=== PATIENT | female | born 1975 | race Caucasian/White ===

== ENCOUNTER → 2016-03-24 | Outpatient (CLI) | payer OTHER ==
[~2016-03-24] MED LIST: BCP TD; CLONAZEPAM1 M1 PO; DOXYCYCLINE 10100 MG PO; FAMILY PHARMAC0.4 MG PO; FLEXERIL10 MG PO; ISONIAZID; ISONIAZID PO; LEVORA-28 30 MC1 TA1 PO; MOTRIN 800800 MG/TAB PO; PERCOCET 325 MG1 TA2 PO; PRILOSEC 20MG20 MG PO; RANITIDINE75 MG PO; SAM-E200 MG PO; VITAMIN B 12 PO; VITAMIN B 6 PO; VITAMIN B-12100 MCG PO; VITAMIN B-625 MG PO; WELLBUTRIN SR150 MG PO
== END ==
LOC: BHSO 15:54
DX: F33.2 Major depressive disorder, recurrent severe without psychotic features (principal)

== ENCOUNTER → 2016-06-07 | Outpatient (CLI) | payer OTHER | LOC: BHSO 09:05 | DX: F33.41 Major depressive disorder, recurrent, in partial remission (principal) ==

== ENCOUNTER → 2016-06-08 | Outpatient (CLI) | payer OTHER | LOC: BHSO 12:57 | DX: F41.1 Generalized anxiety disorder (principal) ==

== ENCOUNTER → 2016-07-14 | Outpatient (CLI) | payer OTHER | LOC: BHSO 16:04 | DX: F41.1 Generalized anxiety disorder (principal) ==

== ENCOUNTER → 2016-08-11 | Outpatient (CLI) | payer OTHER | LOC: BHSO 15:53 | DX: F41.1 Generalized anxiety disorder (principal) ==

== ENCOUNTER → 2016-09-08 | Outpatient (CLI) | payer OTHER | LOC: BHSO 15:56 | DX: F41.1 Generalized anxiety disorder (principal) ==

== ENCOUNTER → 2016-12-28 | Outpatient (CLI) | payer BC | LOC: BHSO 13:45 | DX: F41.1 Generalized anxiety disorder (principal) ==

== ENCOUNTER → 2017-03-30 | Outpatient (CLI) | payer BC | LOC: BHSO 15:55 | DX: F41.1 Generalized anxiety disorder (principal) | CPT/HCPCS: G0463 ==

== ENCOUNTER → 2017-04-05 | Outpatient (CLI) | payer BC | LOC: MC.RAD 13:40 | DX: Z12.31 Encounter for screening mammogram for malignant neoplasm of breast (principal) ==

== ENCOUNTER → 2017-05-10 | Outpatient (CLI) | payer BC | LOC: BHSO 14:49 | DX: F33.1 Major depressive disorder, recurrent, moderate (principal) ==

== ENCOUNTER → 2017-05-26 | Outpatient (CLI) | payer BC | LOC: BHSO 16:01 | DX: F33.1 Major depressive disorder, recurrent, moderate (principal) | CPT/HCPCS: G0463 ==

== ENCOUNTER → 2017-06-07 | Outpatient (CLI) | payer BC | LOC: BHSO 14:58 | DX: F33.1 Major depressive disorder, recurrent, moderate (principal) ==

== ENCOUNTER → 2017-07-07 | Outpatient (CLI) | payer BC | LOC: BHSO 15:54 | DX: F33.1 Major depressive disorder, recurrent, moderate (principal) ==

== ENCOUNTER → 2017-07-13 | Outpatient (CLI) | payer BC | LOC: BHSO 15:34 | DX: F33.41 Major depressive disorder, recurrent, in partial remission (principal) | CPT/HCPCS: G0463 ==

== ENCOUNTER → 2017-09-22 | Outpatient (CLI) | payer BC | LOC: BHSO 09:02 | DX: F33.1 Major depressive disorder, recurrent, moderate (principal) ==

== ENCOUNTER → 2017-10-11 | Outpatient (CLI) | payer BC | LOC: BHSO 13:15 | DX: F33.42 Major depressive disorder, recurrent, in full remission (principal) ==

== ENCOUNTER → 2017-11-13 | Outpatient (CLI) | payer BC | LOC: BHSO 15:57 | DX: F33.1 Major depressive disorder, recurrent, moderate (principal) ==

== ENCOUNTER → 2017-12-14 | Outpatient (CLI) | payer BC | LOC: BHSO 16:00 | DX: F33.1 Major depressive disorder, recurrent, moderate (principal) ==

== ENCOUNTER → 2018-01-10 | Outpatient (CLI) | payer BC | LOC: BHSO 15:55 | DX: F33.1 Major depressive disorder, recurrent, moderate (principal) ==

== ENCOUNTER → 2018-01-11 | Outpatient (CLI) | payer BC | LOC: BHSO 15:41 | DX: F33.42 Major depressive disorder, recurrent, in full remission (principal) | CPT/HCPCS: G0463 ==

== ENCOUNTER → 2018-02-02 | Outpatient (CLI) | payer BC | LOC: BHSO 16:00 | DX: F41.1 Generalized anxiety disorder (principal) ==

== ENCOUNTER → 2018-03-09 | Outpatient (CLI) | payer BC | LOC: BHSO 15:53 | DX: F33.1 Major depressive disorder, recurrent, moderate (principal) ==

== ENCOUNTER → 2018-04-06 | Outpatient (CLI) | payer BC | LOC: BHSO 15:54 | DX: F33.1 Major depressive disorder, recurrent, moderate (principal) ==

== ENCOUNTER → 2018-04-11 | Outpatient (CLI) | payer BC | LOC: MC.RAD 15:06 | DX: Z12.31 Encounter for screening mammogram for malignant neoplasm of breast (principal) ==

== ENCOUNTER → 2018-05-10 | Outpatient (CLI) | payer BC | LOC: BHSO 15:51 | DX: F33.1 Major depressive disorder, recurrent, moderate (principal) ==

== ENCOUNTER → 2018-06-26 | Outpatient (CLI) | payer BC | LOC: BHSO 16:02 | DX: F41.1 Generalized anxiety disorder (principal) ==

== ENCOUNTER → 2018-07-10 | Outpatient (CLI) | payer BC | LOC: BHSO 16:16 | DX: F33.42 Major depressive disorder, recurrent, in full remission (principal) | CPT/HCPCS: G0463 ==

== ENCOUNTER → 2018-08-16 | Outpatient (CLI) | payer BC | LOC: BHSO 13:55 | DX: F41.1 Generalized anxiety disorder (principal) ==

== ENCOUNTER → 2018-09-13 | Outpatient (CLI) | payer BC | LOC: BHSO 13:57 | DX: F41.1 Generalized anxiety disorder (principal) ==

== ENCOUNTER → 2018-10-10 | Outpatient (CLI) | payer BC | LOC: BHSO 10:59 | DX: F33.1 Major depressive disorder, recurrent, moderate (principal) | CPT/HCPCS: G0463 ==

== ENCOUNTER → 2018-12-05 | Outpatient (CLI) | payer BC | LOC: BHSO 15:50 | DX: F33.1 Major depressive disorder, recurrent, moderate (principal) ==

== ENCOUNTER → 2019-01-08 | Outpatient (CLI) | payer BC | LOC: BHSO 16:08 | DX: F41.1 Generalized anxiety disorder (principal) | CPT/HCPCS: G0463 ==

== ENCOUNTER → 2019-01-09 | Outpatient (CLI) | payer BC | LOC: BHSO 15:57 | DX: F33.1 Major depressive disorder, recurrent, moderate (principal) ==

== ENCOUNTER → 2019-04-10 | Outpatient (CLI) | payer BC | LOC: BHSO 16:01 | DX: F41.1 Generalized anxiety disorder (principal) ==

== ENCOUNTER → 2019-05-15 | Outpatient (CLI) | payer BC | LOC: MC.RAD 13:23 | DX: Z12.31 Encounter for screening mammogram for malignant neoplasm of breast (principal) ==

== ENCOUNTER → 2019-05-17 | Outpatient (CLI) | payer BC | LOC: BHSO 15:54 | DX: F33.0 Major depressive disorder, recurrent, mild (principal) ==

== ENCOUNTER → 2019-08-07 | Outpatient (CLI) | payer BC | LOC: BHSO 16:02 | DX: F33.1 Major depressive disorder, recurrent, moderate (principal) ==

== ENCOUNTER → 2019-08-19 | Outpatient (CLI) | payer BC | LOC: BHSO 14:59 | DX: F41.1 Generalized anxiety disorder (principal) ==

== ENCOUNTER → 2019-09-03 | Outpatient (CLI) | payer BC | LOC: BHSO 15:03 | DX: F41.1 Generalized anxiety disorder (principal) ==

== ENCOUNTER → 2019-09-24 | Outpatient (CLI) | payer BC | LOC: BHSO 16:05 | DX: F41.1 Generalized anxiety disorder (principal) ==

== ENCOUNTER → 2019-10-08 | Outpatient (CLI) | payer BC | LOC: BHSO 15:59 | DX: F33.0 Major depressive disorder, recurrent, mild (principal) ==

== ENCOUNTER → 2019-10-21 | Outpatient (CLI) | payer BC | LOC: BHSO 16:02 | DX: F41.1 Generalized anxiety disorder (principal) ==

== ENCOUNTER → 2019-11-05 | Outpatient (CLI) | payer BC | LOC: BHSO 16:01 | DX: F41.1 Generalized anxiety disorder (principal) ==

== ENCOUNTER → 2019-11-26 | Outpatient (CLI) | payer BC | LOC: BHSO 15:55 | DX: F41.1 Generalized anxiety disorder (principal) ==

== ENCOUNTER → 2019-12-13 | Outpatient (CLI) | payer BC | LOC: BHSO 15:56 | DX: F41.1 Generalized anxiety disorder (principal) ==

== ENCOUNTER → 2019-12-27 | Outpatient (CLI) | payer BC | LOC: BHSO 15:53 | DX: F41.1 Generalized anxiety disorder (principal) ==

== ENCOUNTER → 2020-01-24 | Outpatient (CLI) | payer BC | LOC: BHSO 15:55 | DX: F41.1 Generalized anxiety disorder (principal) ==

== ENCOUNTER 2020-03-18 13:00 | Outpatient (RCR) | payer BC | END 2020-03-23 | disposition home or self-care (01) | LOC: WSPT | DX: M54.5 Low back pain (principal) ==

== ENCOUNTER 2020-05-11 16:00 | Outpatient (RCR) | payer BC | END 2020-06-12 08:52 | disposition home or self-care (01) | LOC: WSPT 16:00 | DX: Z00.00 Encounter for general adult medical examination without abnormal findings (principal); M54.5 Low back pain; F33.41 Major depressive disorder, recurrent, in partial remission; E78.5 Hyperlipidemia, unspecified; K21.9 Gastro-esophageal reflux disease without esophagitis | CPT/HCPCS: G0283-GP ==

== ENCOUNTER → 2020-06-16 | Outpatient (CLI) | payer BC | LOC: MC.RAD 16:03 | DX: Z12.31 Encounter for screening mammogram for malignant neoplasm of breast (principal) ==

== ENCOUNTER → 2023-07-24 | Outpatient (CLI) | payer BC ==
[~2023-07-24] MED LIST changes: +KLONOPIN 1MG1 MG PO; +LAMICTAL200 MG PO; +MOTRIN 200200 MG/TAB PO; +MULTI VITAMINS1 TAB PO; +PROTONIX 40MG T40 MG PO; +VITAMIN B COMPL1 SGL PO; +WELLBUTRIN SR150 M1 PO; +[UNRECOGNIZED DRUG - OTHER] PO
== END ==
LOC: MC.RAD 13:56
DX: Z12.31 Encounter for screening mammogram for malignant neoplasm of breast (principal)

== ENCOUNTER → 2023-10-20 | Outpatient (CLI) | payer BC ==
[2023-10-20 17:18] LABS: BASO % 0.8 % (0.0-2.0); EOS # 0.1 K/mm3 (0.0-0.7); EOS % 1.4 % (0.0-4.0); GRAN % 59.5 % (42.2-75.2); HEMOGLOBIN 11.9 g/dl (12.5-16.0); LYMPH # 1.5 K/mm3 (1.2-3.4); LYMPH % 29.5 % (20.0-51.0); MEAN CELL VOLUME 88 fl (80.0-100.0); MEAN CORPUSCULAR HEMOGLOBIN 29 pg (27-31); MEAN CORPUSCULAR HGB CONC 33 g/dl (33.0-37.0); MEAN PLATELET VOLUME 9.9 fl (7.4-10.4); MONO # 0.4 K/mm3 (0.1-0.6); MONO % 8.4 % (1.7-9.3); PLATELET COUNT 258 K/mm3 (130-400); RED BLOOD COUNT 4.05 M/mm3 (4.10-5.30); REDCELL DISTRIBUTION WIDTH-CV 14.3 % (11.5-14.5)
[2023-10-20 17:19] LABS: HEMATOCRIT 35.8 % (37.0-47.0)
[2023-10-20 17:37] LABS: ALANINE AMINOTRANSFERASE 29 U/L (0-55); ALBUMIN 3.3 g/dL (3.5-5.0); ALKALINE PHOSPHATASE 130 U/L (40-150); ANION GAP 10 mmol/L (7-16); AST,SGOT 21 U/L (5-34); BILIRUBIN,TOTAL 0.2 mg/dL (0.2-1.2); BLOOD UREA NITROGEN 6 mg/dL (7-19); CALCIUM 9.1 mg/dL (8.4-10.2); CHLORIDE 108 mEq/L (98-107); CREATININE, serum 0.96 mg/dL (0.57-1.11); GLUCOSE 95 mg/dL (70-99); POTASSIUM 3.6 mEq/L (3.5-4.5); SODIUM 141 mEq/L (136-145); TOTAL PROTEIN 7.3 g/dl (6.2-8.1)
[2023-10-20 17:57] LABS: TSH w REFLEX 1.173 uIU/mL (0.350-4.940)
[2023-10-20 18:01] LABS: TROPONIN-I < 0.010 ng/mL (0.00-0.033)
== END ==
LOC: COL.LAB 16:40
PROVIDERS: Physician Assistant
DX: R79.89 Other specified abnormal findings of blood chemistry (principal); M54.9 Dorsalgia, unspecified

== ENCOUNTER → 2023-10-25 | Outpatient (CLI) | payer BC | LOC: COL.VAS 08:17 | DX: I51.7 Cardiomegaly (principal); M54.9 Dorsalgia, unspecified ==